=== PATIENT | male | born 1990 | race Caucasian/White ===

== ENCOUNTER 2016-10-02 09:18 | Emergency (ER) | payer SELFPAY ==
[~2016-10-02] VITALS: Ht 193 cm; Wt 90.0 kg
[2016-10-02] MEDS ORDERED: PERCOCET 5/321 COMBO PO (10:23)
[2016-10-02 10:25] VITALS: BP 123/73
== END 2016-10-02 10:32 | disposition home or self-care (01) | DRG 605 ==
LOC: ED 09:18
DX: S80.02XA Contusion of left knee, initial encounter (principal); F17.210 Nicotine dependence, cigarettes, uncomplicated; W22.8XXA Striking against or struck by other objects, initial encounter; Y93.89 Activity, other specified; Y92.59 Other trade areas as the place of occurrence of the external cause